=== PATIENT | male | born 1995 | race Native Hawaiian/Other Pacific Islander ===

== ENCOUNTER 2017-07-16 23:13 | Emergency (ER) | payer OTHER ==
--- NOTE | 2017-07-16 23:20 | C.PDOC ---
History Of Present Illness pt states that he smoked some marijuana for the first time and now he feels dizzy . No chest pain, no shortness of breath. denies suicidal or homicidal ideation Time Seen by Provider: 07/16/17 23:20 Chief Complaint (Nursing): Substance Abuse History Per: Patient History/Exam Limitations: no limitations Onset/Duration Of Symptoms: Hrs Current Symptoms Are (Timing): Still Present Suicide/Self Injury Attempted (Context): None Modifying Factor(s): Marijuana Severity: Mild Pain Scale Rating Of: 2 Associated Symptoms: denies: Anger, Anxiety, Agitation, Suicidal Plan Involuntary Hold By: None Recent travel outside of the [place]: No Additional History Per: Patient, EMS Past Medical History Reviewed: Historical Data, Nursing Documentation, Vital Signs Vital Signs: Last Vital Signs Temp 98 F 07/17/17 01:12 Pulse 76 07/17/17 01:12 Resp 16 07/17/17 01:12 BP 130/82 07/17/17 01:12 Pulse Ox 100 07/17/17 04:02 Family History: States: No Known Family Hx - Social History Hx Alcohol Use: No Hx Substance Use: Yes - Immunization History Hx Tetanus Toxoid Vaccination: No Hx Influenza Vaccination: No Hx Pneumococcal Vaccination: No Review Of Systems Constitutional: Negative for: Fever, Chills Eyes: Negative for: Vision Change ENT: Negative for: Throat Pain Cardiovascular: Negative for: Chest Pain Respiratory: Negative for: Shortness of Breath Gastrointestinal: Negative for: Nausea, Vomiting, Abdominal Pain Genitourinary: Negative for: Dysuria Musculoskeletal: Negative for: Back Pain Skin: Negative for: Rash Neurological: Positive for: Headache, Dizziness Psych: Negative for: Anxiety Physical Exam - Physical Exam Appears: Non-toxic, No Acute Distress Skin: Warm, Dry Head: Normacephalic Eye(s): bilateral: Normal Inspection, PERRL, EOMI Oral Mucosa: Moist Neck: Supple Chest: Symmetrical Cardiovascular: Rhythm Regular Respiratory: No Rales, No Rhonchi, No Wheezing Gastrointestinal/Abdominal: Soft, No Tenderness, No Distention Back: No CVA Tenderness Extremity: Normal ROM Extremity: Bilateral: Atraumatic, Normal Color And Temperature, Normal ROM Pulses: Left Dorsalis Pedis: Normal, Right Dorsalis Pedis: Normal Neurological/Psych: Oriented x3, Normal Speech, Normal Cognition Gait: Steady ED Course And Treatment O2 Sat by Pulse Oximetry: 100 Pulse Ox Interpretation: Normal Reevaluation Time: 05:03 Reassessment Condition: Improved ED OBSERVATION Discharge: Yes Date of observation admission: 07/17/17 Time of observation admission: 00:56 - Observation admission statement Patient is being placed in observation because:: drug abuse - Goals of Observation Goals of observation are:: re-eval - Progress Note Progress Note: 07/17/17 00:57 vitals stable 07/17/17 02:01 no complaints 07/17/17 04:01 vitals stable Disposition Counseled Patient/Family Regarding: Studies Performed, Diagnosis, Need For Followup - Disposition Referrals: [facility] [Outside] [facility] [Outside] Disposition: HOME/ ROUTINE Disposition Time: 23:20 Condition: FAIR Instructions: Cannabis Abuse (ED) Forms: [facility] ([place]ian) - Clinical Impression Clinical Impression: Drug abuse
[2017-07-17 05:09] VITALS: BP 128/80; PULSE 77; RESP 19; TEMP 97.9; O2SAT 99
== END 2017-07-17 05:29 | disposition home or self-care (01) ==
LOC: C.ER 23:13
DX: F12.10 Cannabis abuse, uncomplicated (principal)
CPT/HCPCS: 82948; 99284; G0480